=== PATIENT | male | born 1960 | race Caucasian/White ===

== ENCOUNTER 2016-07-25 10:39 | Emergency (ER) ==
[2016-07-25 10:39] VITALS: BMI 36.6
[2016-07-25] MEDS ORDERED: ASPIRIN CHEWABLE PO STA (10:41)
[2016-07-25] MEDS ORDERED: NITROSTAT SL STA (10:41)
[2016-07-25] MEDS ORDERED: SODIUM CHLORIDE 1,000 ML IV STA (10:41)
[2016-07-25] MEDS ORDERED: MORPHINE 2 MG/ML SYRINGE IVP STA (10:45)
[2016-07-25] MEDS ORDERED: ZOFRAN 4 MG/2 ML IVP STA (10:45)
[2016-07-25 10:48] VITALS: BP 150/95; TEMP 97.2
[2016-07-25 10:50] LABS: BASOPHILS # (AUTO) 0.1 K/uL (0-0.2); BASOPHILS % (AUTO) 0.7 % (0.0-3.0); EOSINOPHILS # (AUTO) 0.5 K/ul (0.0-0.7); EOSINOPHILS % (AUTO) 4.2 % (0.0-7.0); HEMATOCRIT 46.7 % (42.0-52.0); HEMOGLOBIN 15.7 g/dl (14.0-18.0); IMMATURE GRANULOCYTE % (AUTO) 0.4 % (0.0-5.0); LYMPHOCYTES # (AUTO) 3.5 K/uL (0.60-3.4); LYMPHOCYTES % (AUTO) 32.1 (10.0-50.0); MEAN CORPUSCULAR HEMOGLOBIN 25.6 pg (27.0-31.0); MEAN CORPUSCULAR HGB CONC 33.6 (31.8-35.4); MEAN CORPUSCULAR VOLUME 76.1 fl (80.0-94.0); MONOCYTES # (AUTO) 0.9 K/uL (0.4-2.0); MONOCYTES % (AUTO) 7.7 (0-10); NEUTROPHILS # (AUTO) 6.1 K/ul (2.0-6.9); NEUTROPHILS % (AUTO) 54.9; PLATELET COUNT 247 10^3/uL (140-440); RED BLOOD COUNT 6.14 10^6/ul (4.70-6.10); WHITE BLOOD COUNT 11.01 K/ul (4.2-10.2)
--- NOTE | 2016-07-25 10:50 | ED.PDOC ---
General ED Provider: Dr. FRANCISCO ESPINOZA-ER Chief Complaint: Chest Pain Stated Complaint: delvin been hurting since 6 am--i took ntg last night but ran out Time Seen by Physician: 10:45 Mode of Arrival: Walk-In Information Source: Patient Exam Limitations: No limitations Primary Care Provider: HALIMA MESSER Nursing and Triage Documentation Reviewed and Agree: Yes Cardiovascular Complaint Exam - Chest Pain Complaint/Exam Onset: Gradual Duration: 4 hrs Symptoms Are: Still present Timing: Intermittent Initial Severity: Mild Current Severity: Moderate Location: Reports: Discrete Character: Reports: Dull, Aching, Heaviness, Pressure Aggravating: Reports: None Alleviating: Reports: Nitro, Oxygen Associated Signs and Symptoms: Denies: Diaphoresis, Nausea, Vomiting, Fever, Palpitations, Cough, Hemoptysis, Back pain, Abdominal pain, Dizziness, Short of air, Calf pain, Calf swelling Related Surgical History: Reports: Cardiac Cath, PTCA/Stent History of Healthcare-Acquired Pneumonia: Reports: No AMI/ACS Risk Factors: Reports: Myocardial Infarction, Diabetes, Obesity, Hypertension TAD Risk Factors: Reports: Hypertension Pulmonary Embolism Risk Factors: Reports: None Prior Care for this Complaint: No Recent Stress Test: No Recent Echo/LV Function: No JVD Present: No Subcutaneous Emphysema Present: No Diminshed Breath Sounds: No Reproducible Chest Wall Pain: No Bilateral Pulses Present: Yes Unequal Pulses Noted: No If Risk Factors for AMI/ACS Consider: EKG, Cardiac Enzymes, Aspirin Differential Diagnoses: Acute NV, ACS Quality Indicator For Non-Traumatic Chest Pain/Syncope: EKG Performed Review of Systems - Review Of Systems Constitutional: Reports: No symptoms Eyes: Reports: No symptoms Ears, Nose, Mouth, Throat: Reports: No symptoms Respiratory: Reports: No symptoms Cardiac: Reports: Chest pain GI: Reports: No symptoms : Reports: No symptoms Musculoskeletal: Reports: No symptoms Skin: Reports: No symptoms Neurological: Reports: No symptoms Endocrine: Reports: No symptoms Hematologic/Lymphatic: Reports: No symptoms All Other Systems: Reviewed and Negative Past Medical History - Past Medical History Previously Healthy: No Endocrine: Reports: DM 2 Cardiovascular: Reports: CAD, Hypertension Respiratory: Reports: None Hematological: Reports: None Gastrointestinal: Reports: GERD Genitourinary: Reports: None Neuro/Psych: Reports: TIA Musculoskeletal: Reports: None Cancer: Reports: None - Surgical History General Surgical History: Reports: Unknown - Family History Family History: Reports: Unknown - Social History Smoking Status: Former smoker Hx Substance Use: No Alcohol Screening: None Lives: With family Physical Exam - Physical Exam Appearance: Well-appearing, No pain distress, Well-nourished Pain Distress: Moderate Eyes: [place] ENT: Ears normal, Nose normal, Oropharynx normal Neck: Supple Respiratory: Airway patent, Breath sounds clear, Breath sounds equal, Respirations nonlabored Cardiovascular: RRR, Pulses normal, No rub, No murmur GI/: Soft, Nontender, No masses, Bowel sounds normal, No Organomegaly Musculoskeletal: Normal strength Skin: Warm, Dry, Normal color Neurological: Sensation intact, Motor intact, Reflexes intact, Cranial nerves intact, Alert, Oriented Psychiatric: Affect appropriate, Mood appropriate Interpretation - Radiology Interpretation Radiology Interpretation By: ED Physician Radiology Results: Negative Exam Interpreted: Portable CXR - EKG Interpretation Time of EKG #1: 10:51 Rate: Normal Rhythm: Sinus Ectopy: None Maud: NL ST Segment: Normal Interpretation: nsr Re-Evaluation - Re-Evaluation Time of Re-Evaluation: 10:56 Status: Improved Vital Signs Stable: Yes Pain Level: 1 Appearance: NAD Lungs: Clear Skin: Warm and Dry Neuro: Alert and Oriented X3 CV: RRR Physician Notification - Case Discussed Physician Notified: dr [email or web address] Time of Notification: 10:56 Critical Care Note - Critical Care Note Total Time (mins): 0 Course - Course Orders, Labs, Meds: Orders Category Date Time Status EKG-(ED ONLY) Stat CARDIO 07/25/16 10:40 Completed TRANSFER TO OUTSIDE FACILITY .[facility] 07/25/16 10:57 Active ([place], [place]) WRITE TRANSFER/SBAR NOTE ONCE CARE 07/25/16 10:57 Active DISCHARGE ASSESSMENT ONCE DISCHARGE 07/25/16 10:57 Active WRITE DISCHARGE NOTE ONCE DISCHARGE 07/25/16 10:57 Active Motor Vehicle Compliance Analyst [ED STOREKEEPER HELPER APPLIED] .ONCE EMERGENCY 07/25/16 10:40 Active IV [ED IV/MEDIPORT/POWERPORT] .ONCE EMERGENCY 07/25/16 10:40 Active AMYLASE Stat LAB 07/25/16 10:45 Received CBC W/ AUTO DIFF Stat LAB 07/25/16 10:45 Received COMPREHENSIVE METABOLIC PANEL Stat LAB 07/25/16 10:45 Received CREATINE KINASE Stat LAB 07/25/16 10:45 Received D-DIMER Stat LAB 07/25/16 10:45 Received LIPASE Stat LAB 07/25/16 10:45 Received TROPONIN I Stat LAB 07/25/16 10:45 Received 0.9 % Sodium Chloride [Saline Flush] MEDS 07/25/16 10:40 Active 1 syr IVF PRN PRN Aspirin [Aspirin Chewable] MEDS 07/25/16 10:41 Discontinued 324 mg PO ONCE STA Morphine Sulfate [Morphine 2 mg/ml Syringe] MEDS 07/25/16 10:45 Discontinued 2 mg IVP ONCE STA Nitroglycerin [Nitrostat] MEDS 07/25/16 10:41 Discontinued 0.4 mg SL ONCE STA Ondansetron HCl/Pf [Zofran 4 mg/2 ml] MEDS 07/25/16 10:45 Discontinued 4 mg IVP ONCE STA Sodium Chloride 0.9% [Sodium Chloride] 1,000 ml MEDS 07/25/16 10:41 Active IV 100 mls/hr CHEST, 1V AP ONLY Stat RADS 07/25/16 10:45 Taken Medications Generic Name Dose Route Start Last Admin Trade Name Freq PRN Reason Stop Dose Admin Sodium Chloride 1,000 mls @ 100 mls/hr 07/25/16 10:41 07/25/16 10:54 Sodium Chloride IV 07/25/16 20:40 100 mls/hr .Q10H STA Administration Sodium Chloride 1 syr 07/25/16 10:40 07/25/16 10:54 Saline Flush IVF 1 syr PRN PRN Administration To flush IV Discontinued Medications Generic Name Dose Route Start Last Admin Trade Name Freq PRN Reason Stop Dose Admin Aspirin 324 mg 07/25/16 10:41 07/25/16 10:52 Aspirin Chewable PO 07/25/16 10:42 324 mg ONCE STA Administration Morphine Sulfate 2 mg 07/25/16 10:45 Morphine 2 Mg/Ml Syringe IVP 07/25/16 10:46 ONCE STA Nitroglycerin 0.4 mg 07/25/16 10:41 07/25/16 10:54 Nitrostat SL 07/25/16 10:42 0.4 mg ONCE STA Administration Ondansetron HCl 4 mg 07/25/16 10:45 Zofran 4 Mg/2 Ml IVP 07/25/16 10:46 ONCE STA the patient was transferred to [facility] due to his hooker laster being there and coronary stent in [id number]) Vital Signs: Temp Pulse Resp BP Pulse Ox 07/25/16 10:39 97.2 F L 73 20 150/95 H 94 L MARY KAY Risk Score MARY KAY Risk Score: Risk Score Odds of by 30D 0 0.1 (0.1-0.2) 1 0.3 (0.2-0.3) 2 0.4 (0.3-0.5) 3 0.7 (0.6-0.9) 4 1.2 (1.0-1.5) 5 2.2 (1.9-2.6) 6 3.0 (2.5-3.6) 7 4.8 (3.8-6.1) Departure - Departure Time of Disposition: 10:56 Disposition: TSF SHORT-TRM HOSP Discharge Problem: Chest pain Instructions: Angina (ED), Chest Pain (ED) Condition: Good Pt referred to PMD for follow-up: Yes Allergies/Adverse Reactions: Allergies No Known Allergies Allergy (Verified 07/25/16 10:45) Home Medications: Ambulatory Orders Bisoprolol Fumarate/Hctz [Bisoprolol-Hctz 10-6.25 mg Tab] 1 each PO BID Hydrochlorothiazide 25 mg PO DAILY 09/08/13 Lisinopril [Zestril] 40 mg PO DAILY 09/08/13 Metformin HCl [Glucophage] 1,000 mg PO BID 09/08/13 Potassium Chloride [K-Dur] 20 meq PO BID 09/08/13 Pravastatin Sodium [Pravachol] 20 mg PO BEDTIME 09/08/13 Transfer Form Completed: Yes Disposition Discussed With: Patient
[2016-07-25 11:27] LABS: ALBUMIN 3.8 g/dL (3.4-5.0); ALBUMIN/GLOBULIN RATIO 0.81; ANION GAP 17.6; BILIRUBIN,TOTAL 0.63 mg/dL (0.00-1.20); BUN/CREATININE RATIO 14.78; CALCIUM 9.8 mg/dL (8.2-10.2); CREATININE 1.15 mg/dL (0.60-1.10); POTASSIUM 4.6 mmol/L (3.5-5.1); TOTAL PROTEIN 8.5 g/dL (6.4-8.2); TROPONIN I 0.031 ng/ml (0.0000-0.4000)
[2016-07-25 11:28] LABS: CREATINE KINASE MB 3.4 ng/ml (0.0-3.6)
--- NOTE | 2016-07-25 15:35 | DI ---
EXAM: Single AP view of the chest HISTORY: Chest pain. COMPARISON: chest x-ray 06/30/2008 FINDINGS: Cardiomediastinal silhouette is normal. There is no pneumothorax or pleural effusion. Th ere is no consolidation, nodule or mass. The osseous structures are unchanged. IMPRESSION: No acute cardiopulmonary process.
== END 2016-07-25 11:17 | disposition short-term general hospital (02) ==
LOC: ED 10:39
DX: R07.9 Chest pain, unspecified (principal); I10 Essential (primary) hypertension; I25.2 Old myocardial infarction; E11.9 Type 2 diabetes mellitus without complications; E66.9 Obesity, unspecified; K21.9 Gastro-esophageal reflux disease without esophagitis; Z95.5 Presence of coronary angioplasty implant and graft; Z79.899 Other long term (current) drug therapy; Z86.73 Personal history of transient ischemic attack (TIA), and cerebral infarction without residual deficits
CPT/HCPCS: 36415; 80053; 82150; 82550; 82553; 83690; 84484; 85025; 85379; 93005; 93010; 96361; 96374; 96375; 99285

== ENCOUNTER 2016-07-25 11:18 | Outpatient (CLI) ==
[2016-07-25 10:39] VITALS: BMI 36.6
== END 2016-07-25 11:19 | disposition home or self-care (01) ==
LOC: AMBL 11:18
PROVIDERS: ATTEND Family Medicine
DX: R07.9 Chest pain, unspecified (principal)

== ENCOUNTER 2016-08-10 08:50 | Outpatient (CLI) ==
--- NOTE | 2016-08-10 10:08 | US ---
EXAM: ULTRASOUND ABDOMEN LIMITED HISTORY: Abdominal pain FINDINGS: Ultrasound abdomen, limited. Liver size was measured at 24 cm, enlarged. The liver pare nchyma demonstrated increased sound attenuation which can be consistent with steatosis. No focal hep atic lesion or evidence of intrahepatic biliary dilatation was identified. The portal vein is paten t and hepatopedal. No gallstones or gallbladder sludge identified. Gallbladder wall thickness was normal at 0.25 cm. The common bile duct diameter was normal 0.46 cm. Pancreas was not adequately seen. No obvious asc ites. IMPRESSION: Enlarged fatty liver. No gallbladder pathology identified. No ascites.]
== END 2016-08-10 08:51 | disposition home or self-care (01) ==
LOC: RAD 08:50
PROVIDERS: ATTEND Nurse Practitioner Family
DX: R10.9 Unspecified abdominal pain (principal)

== ENCOUNTER 2016-08-16 07:37 | Outpatient (CLI) ==
--- NOTE | 2016-08-16 10:38 | NM ---
EXAM: Hepatobiliary scan HISTORY: Abdominal pain for 6 weeks. COMPARISON: None of this type. Ultrasound 08/10/2016. PROCEDURE: The patient was injected with 5.2 millicuries of 99mTc mebrofenin intravenously. Images of the abdomen were obtained at 5 min intervals for 30 minutes. Additional images were obtained at 40 minutes and 1 hour. The patient was then injected with 2 mcg of CCK by slow infusion while images of the gallbladder were obtained to assess gallbladder contraction. The the patient reported no sym ptoms associated with the injection of CCK. FINDINGS: Sequential images demonstrate normal uptake of tracer into the liver. Activity is seen in the intrahepatic biliary ducts at about 15 minutes. The activity appears in the gallbladder at abo ut 25 minutes. Subsequent images demonstrate increasing activity in the gallbladder. Activity firs t appears in the small bowel at 15 minutes. The gallbladder ejection fraction is 52% . IMPRESSION: 1.Normal hepatobiliary scan. 2.The gallbladder ejection fraction is 52% (normal).
== END 2016-08-16 07:38 | disposition home or self-care (01) ==
LOC: RAD 07:37
PROVIDERS: ATTEND Nurse Practitioner Family
DX: R10.9 Unspecified abdominal pain (principal)